=== PATIENT | male | born 1955 | race Caucasian/White ===

== ENCOUNTER → 2020-01-18 | Outpatient (CLI) | payer OTHER ==
[2020-01-18 10:52] LABS: BUN/Creatinine Ratio 17.9; Calcium 8.5 mg/dL (8.5-10.1); Potassium 3.5 mmol/L (3.5-5.1)
== END | disposition home or self-care (01) ==
LOC: LAB 10:11
PROVIDERS: ATTEND Urology
DX: Z01.812 Encounter for preprocedural laboratory examination (principal); N28.89 Other specified disorders of kidney and ureter
CPT/HCPCS: 36415; 80048

== ENCOUNTER → 2020-03-09 | Day surgery (SDC) | payer OTHER ==
[2020-03-02 15:24] LABS: INR 0.97 (0.9-1.15); Partial Thromboplastin Time 23.4 sec (23.0-31.2)
[2020-03-02 15:30] LABS: Urine Bacteria NONE SEEN /hpf (None Seen); Urine Blood Negative /uL (Negative); Urine Mucus FEW (None Seen); Urine Specific Gravity 1.026 (1.001-1.035); Urine WBC 1 /hpf (0 - 3)
[2020-03-02 15:41] LABS: Albumin 3.8 g/dL (3.4-5.0); BUN/Creatinine Ratio 14.4; Calcium 9.1 mg/dL (8.5-10.1); Potassium 3.3 mmol/L (3.5-5.1)
[2020-03-02 15:43] LABS: Bilirubin, Total 0.9 mg/dL (0.2-1.0); Total Protein 7.1 g/dL (6.4-8.2)
[2020-03-02 16:51] LABS: Basophils # (auto) 0 10 ^3/uL (0-0.2); Basophils % (auto) 0.4 % (0.0-2.0); Eosinophils # (auto) 0.2 10 ^3/uL (0-0.8); Eosinophils % (auto) 2.4 % (0.0-7.0); Hematocrit 42.7 % (41.0-53.0); Hemoglobin 14.4 g/dL (13.5-17.5); Lymphocytes # (auto) 2.9 10 ^3/uL (0.4-5.4); Lymphocytes % (auto) 39.6 % (10.0-50.0); Mean Corpuscular Hemoglobin 28.7 pg (28.0-32.0); Mean Corpuscular Hgb Conc. 33.7 g/dL (32.0-36.0); Mean Corpuscular Volume 85.2 fL (80.0-100.0); Monocytes # (auto) 0.6 10 ^3/uL (0-1.3); Monocytes % (auto) 8.6 % (0.0-12.0); Neutrophils # (auto) 3.6 10 ^3/uL (1.6-8.6); Nucleated Red Blood Cells % 0.1 %; Platelet Count (auto) 292 10^3/uL (140-450); Red Blood Cells 5.01 10^6/uL (4.5-5.90); Red Cell Distribution Width 12.6 % (11.8-14.3); White Blood Cell 7.3 10^3/uL (4.4-10.8)
[~2020-03-09] VITALS: Ht 162.6 cm; Wt 86.2 kg
[~2020-03-09] MED LIST: ASPI-543 PO; CIPROFLOXACIN 400MG/200ML 200 ML IV ONE; HYDR25TA4 PO; MECL25TA18 PO; MIDAZOLAM HCL 1MG/1ML-2 ML VIAL ONE; fentaNYL CITRATE 100 MCG/2 ML VL ONE
[2020-03-09 11:45] VITALS: BP 118/77
== END | disposition home or self-care (01) ==
LOC: SUR 08:08
PROVIDERS: ATTEND Urology
DX: N20.0 Calculus of kidney (principal); I10 Essential (primary) hypertension; E66.01 Morbid (severe) obesity due to excess calories; Z88.0 Allergy status to penicillin; Z68.32 Body mass index [BMI] 32.0-32.9, adult; Z79.82 Long term (current) use of aspirin; Z79.899 Other long term (current) drug therapy; Z98.890 Other specified postprocedural states; Z20.828 Contact with and (suspected) exposure to other viral communicable diseases
CPT/HCPCS: 36415; 50590; 80053; 81001; 85025; 85610; 85730; J0744; J2250; J3010; U0003

== ENCOUNTER → 2020-03-20 | Outpatient (CLI) | payer OTHER ==
[~2020-03-20] MED LIST changes: -CIPROFLOXACIN 400MG/200ML 200 ML IV ONE; -MIDAZOLAM HCL 1MG/1ML-2 ML VIAL ONE; -fentaNYL CITRATE 100 MCG/2 ML VL ONE
== END | disposition home or self-care (01) ==
LOC: LAB 16:53
PROVIDERS: ATTEND Urology
DX: N20.0 Calculus of kidney (principal)
CPT/HCPCS: 82360

== ENCOUNTER 2024-08-25 07:21 | Inpatient (IN) | payer MEDICARE, OTHER ==
[~2024-08-25] VITALS: Ht 162.6 cm; Wt 74.0 kg
[~2024-08-25 07:21] MED LIST changes: +MECL-90 PO; -MECL25TA18 PO
--- NOTE | 2024-08-25 07:49 | ED.PDOC ---
History of Present Illness HPI Comments 69M presents to the ER w/ prior Hx of Mantle Cell Lymphoma Cancer and is currently taking Chemo which may be associated to the c/c of Constipation. Pt reports that he has been having light urgency for a week and woke up today w/ urgency and was unable to use the bathroom. Pt notes that he started to bleed as well. Denies chills, fever, N/V/D, SOB, CP or no other associated symptoms, modifiers, recent injuries or sick contacts at this time. Chief Complaint: Constipation Time Seen by MD: 07:40 Reviewed Notes: Nurses Notes, Medications, Allergies Allergies: Coded Allergies: Penicillins (Verified Allergy, Unknown, 03/02/20) Home Meds Reported Medications Meclizine Hcl (Meclizine Hcl) 25 Mg Tab, 25 MG PO DAILY for 30 Days, MG 03/02/20 Aspirin (Aspir-Low) 81 Mg Tab, 81 MG PO DAILY for 30 Days, MG 03/02/20 Hydrochlorothiazide (Hydrochlorothiazide) 25 Mg Tab, 25 MG PO DAILY for 30 Days, MG 03/02/20 Information Source: Patient, Spouse Mode of Arrival: Ambulatory Severity: Moderate Timing: Days Duration: Since onset, Days Prehospital treatment: None Past Medical History PAST MEDICAL HISTORY: Cancer (Mantle Cell Lymphoma) Past Medical History (Other): Currently going through Chemo Surgical History: Denies all surgeries Family History Family History: Reviewed,noncontributory to illness, Unknown Social History Smoker: Non-Smoker Alcohol: Denies ETOH Use Drugs: Denies Drug Use Lives In: Home Constitutional: denies: chills, diaphoresis, fatigue, fever, malaise, sweats, weakness, others EENTM: denies: blurred vision, double vision, ear bleeding, ear discharge, ear drainage, ear pain, ear ringing, eye pain, eye redness, hearing loss, mouth pain, mouth swelling, nasal discharge, nose bleeding, nose congestion, nose pain, photophobia, tearing, throat pain, throat swelling, voice changes, others Respiratory: denies: cough, hemoptysis, orthopnea, SOB at rest, shortness of breath, SOB with excertion, stridor, wheezing, others Cardiovascular: denies: chest pain, dizzy spells, diaphoresis, Dyspnea on exer tion, edema, irregular heart beat, left arm pain, lightheadedness, palpitations, PND, syncope, others Gastrointestinal: reports: constipated; denies: abdomen distended, abdominal pain, blood streaked bowels, diarrhea, dysphagia, difficulty swallowing, hematemesis, melena, nausea, poor appetite, poor fluid intake, rectal bleeding, rectal pain, vomiting, others Genitourinary: denies: burning, dysuria, flank pain, frequency, hematuria, incontinence, penile discharge, penile sore, pain, testicle pain, testicle swelling, urgency, others Neurological: denies: dizziness, fainting, headache, left sided numbness, left sided weakness, numbness, paresthesia, pre-existing deficit, right sided numbness, right sided weakness, seizure, speech problems, tingling, tremors, weakness, others Musculoskeletal: denies: back pain, gout, joint pain, joint swelling, muscle pain, muscle stiffness, neck pain, others Integumetry: denies: bruises, change in color, change in hair/nails, dryness, laceration, lesions, lumps, rash, wounds, others Allergic/Immunocompromised: denies: Difficulty Healing, Frequent Infections, Hives, Itching, others Hematologic/Lymphatic: denies: anemia, blood clots, easy bleeding, easy bruising, swollen glands, others Endocrine: denies: excessive hunger, excessive sweating, excessive thirst, excessive urination, flushing, intolerance to cold, intolerance to heat, unexplained weight gain, unexplained weight loss, others Psychiatric: denies: anxiety, bipolar disorder, depression, hopeless, panic disorder, schizophrenia, sleepless, suicidal, others All Other Systems: Reviewed and Negative Physical Exam General Appearance: Moderate Distress, Normal HEENT: Normal ENT Inspection, Pharynx Normal, TMs Normal Neck: Full Range of Motion, Non-Tender, Normal, Normal Inspection Respiratory: Chest Non-Tender, Lungs Clear, No Accessory Muscle Use, No Respiratory Distress, Normal Breath Sounds Cardiovascular: No Edema, No JVD, No Murmur, No Gallop, Normal Peripheral Pulses, Regular Rate/Rhythm Breast Exam: Deferred Gastrointestinal: Diffuse, No Organomegaly, No Pulsatile Mass, Normal Bowel Sounds, Soft Genitalia: Deferred Pelvic: Deferred Rectal: Deferred Extremities: No calf tenderness, Normal capillary refill, Normal inspection, Normal range of motion, Non-tender, No pedal edema Musculoskeletal : Apperance: Normal Neurologic: Alert, terry cloth cutter hand II-XII nml as Tested, No Motor Deficits, Normal Affect, Normal Mood, No Sensory Deficits Cerebellar Function: Normal Reflexes: Normal Skin: Dry, Normal Color, Warm Peripheral Pulses: 3+ Radial (R), 3+ Radial (L) Lymphatic: No Adenopathy Was a procedure done? Was a procedure done?: No Differential Dx Considerations may include: Anemia Electrolyte imbalance X-Ray, Labs, Meds, VS Vital Signs Date Time Temp Pulse Resp B/P (MAP) Pulse Ox O2 Delivery O2 Flow Rate FiO2 08/25/24 09:09 98.4 98 17 116/65 (82) 97 98.4 08/25/24 09:09 98 17 97 Room Air 08/25/24 07:34 98.2 98 20 116/71 (86) 97 98.2 Lab Test 08/25/24 08:10 08/25/24 06:00 Range/Units White Blood Count 6.5 4.4-10.8 10^3/uL Red Blood Count 2.30 L 4.5-5.90 10^6/uL Hemoglobin 7.2 L 13.5-17.5 g/dL Hematocrit 21.4 L 41.0-53.0 % Mean Corpuscular Volume 93.1 80.0-100.0 fL Mean Corpuscular Hemoglobin 31.3 28.0-32.0 pg Mean Corpuscular Hemoglobin Concent 33.7 32.0-36.0 g/dL Red Cell Distribution Width 17.0 H 11.8-14.3 % Platelet Count 63 L 140-450 10^3/uL Mean Platelet Volume 7.5 6.9-10.8 fL Neutrophils (%) (Auto) 37.0-80.0 % Lymphocytes (%) (Auto) 10.0-50.0 % Monocytes (%) (Auto) 0.0-12.0 % Basophils (%) (Auto) 0.0-2.0 % Neutrophils # (Auto) 1.6-8.6 10 ^3/uL Lymphocytes # (Auto) 0.4-5.4 10 ^3/uL Monocytes # (Auto) 0-1.3 10 ^3/uL Differential Total Cells Counted Pending Neutrophils % (Manual) Pending Band Neutrophils % (Manual) Pending Lymphocytes % (Manual) Pending Monocytes % (Manual) Pending Eosinophils % (Manual) Pending Basophils % (Manual) Pending Metamyelocytes % (manual) Pending Myelocytes % (Manual) Pending Promyelocytes % (Manual) Pending Blast Cells % (Manual) Pending Reactive Lymphocytes Pending Platelet Estimate Pending Sodium Level 134 L 136-145 mmol/L Potassium Level 4.0 3.5-5.1 mmol/L Chloride Level 102 98-107 mmol/L Carbon Dioxide Level 21 20-31 mmol/L Anion Gap 11 5-15 Blood Urea Nitrogen 36 H 9-23 mg/dL Creatinine 1.06 0.700-1.30 mg/dL Glomerular Filtration Rate Calc 76 >90 mL/min BUN/Creatinine Ratio 34.0 H 10.0-20.0 Serum Glucose 94 74-106 mg/dL Calcium Level 9.0 8.7-10.4 mg/dL Urine Color Yellow Yellow Urine Clarity Clear Clear Urine pH 6.0 5.0-9.0 Urine Specific [place] 1.019 1.001-1.035 Urine Protein Trace H Negative Urine Ketones Negative Negative Urine Blood Trace H Negative /uL Urine Nitrite Negative Negative Urine Bilirubin Negative Negative Urine Urobilinogen Normal Negative mg/dL Urine Leukocyte Esterase Negative Negative /uL Urine RBC <1 0 - 3 /hpf Urine Microscopic WBC 1 0-3 /HPF Urine Squamous Epithelial Cells None seen <5 /hpf Urine Bacteria None seen None Seen /hpf Urine Glucose Normal Normal mg/dL Current Medications Medications (Trade) Dose Ordered Sig/Srini Route Start Time Stop Time Status Last Admin Sodium Chloride 1,000 ml @ 1,000 mls/hr Q1H ONCE IV 08/25/24 07:45 08/25/24 08:44 DC 08/25/24 09:07 Sodium Biphosphate/ Sodium Phosphate 135 ml ONCE ONCE AK 08/25/24 07:45 08/25/24 07:46 DC 08/25/24 09:16 EXAM: XY CHEST PORTABLE Indication: sob Technique: Single frontal view of the chest was obtained Comparison: None FINDINGS: Lines and Tubes: None Lungs: No focal consolidation. Pleura: No effusion. No pneumothorax. Cardiomediastinal contours: Unremarkable Bones: No acute osseous abnormality. IMPRESSION: No acute cardiopulmonary disease. Exam: CT CT AB PEL WO CON-NO ORAL OR IV History: colitisvsconstipation Comparison Study: None Technique: Multidetector spiral CT of the abdomen was performed from lung bases to pubic symphysis. Imaging was performed without IV contrast. Axial, coronal and sagittal multiplanar reformats were obtained from the axial data set by the technologist. Radiation Dose : 1. Abdomen/Pelvis: CTDIvol 7.88 mGy, DLP 427.09 mGy*cm. Findings: Evaluation of solid organs is limited due to lack of intravenous contrast use. Lung Bases: Small bilateral pleural effusions. Liver: The liver is normal in size. No focal lesions. Gallbladder and Biliary Tree: Unremarkable Spleen: Splenomegaly. Pancreas: The pancreas is grossly normal in appearance. Adrenal Glands: Unremarkable Kidneys: Kidneys are grossly normal without calculi or hydronephrosis. Bladder: Grossly unremarkable for degree of distention. Bowel: The stomach is grossly normal in appearance. Moderate volume colonic stool. The appendix is not visualized; however, no secondary findings of acute appendicitis identified. Ascites: Absent Lymphadenopathy: Diffuse retroperitoneal adenopathy extending into the left hemipelvis and left groin. For example, Left inguinal lymph node measures 4.8 cm. Left external iliac adenopathy measures 5.9 cm. Left para-aortic lymph node measures 4.5 cm. Abdominal Wall and Mesentery: Unremarkable. Vasculature: The visualized abdominal aorta is normal in size and caliber. Evaluation of abdominal and pelvic vessels is limited due to lack of intravenous contrast. Pelvic Organs: Unremarkable Musculoskeletal: No aggressive focal bony lesions, acute fractures or dislocation. IMPRESSION: Diffuse retroperitoneal, left pelvic and left inguinal adenopathy. Splenomegaly. Radiation optimization: All CT scans at this facility use at least one of these dose optimization techniques: automated exposure control mA and/or kV adjustment per patient size (includes targeted exams where dose is matched to clinical indication) or iterative reconstruction. Patient alert. Complaining of abdominal pain. History of mental lymphoma. Vitals stable. He is on chemotherapy. Continues to have abdominal pain. Was given Fleet. Reviewed his history pain Explained to the patient. Continue monitoring. CT scan of the abdomen reviewed does not show any acute changes lymphadenopathy splenomegaly. Chest x-ray reviewed does not show any acute changes. EKG reviewed does not show any acute changes. Time of 1ST Reevaluation: 08:10 Reevaluation 1ST: Unchanged Patient Education/Counseling: Diagnosis, Treatment, Prognosis Family Education/Counseling: Diagnosis, Treatment, Prognosis Departure 1 Departure Time of Disposition: 07:56 Impression: Primary Impression: Acute abdominal pain Disposition: ADMITTED INPATIENT Admit to: Med Surg Condition: Guarded Critical Care Note Critical Care Time?: No Stability Stability form required: No Heart Score Heart Score: Heart Score Response (Comments) Value History Slightly Suspicious 0 EKG Normal 0 Age >65 2 Risk Factors 1 or 2 risk factors 1 Troponin Normal limit 0 Total 3 I personally scribed for BRYANT CARTER MD ([email or web address]) on 08/25/24 at 07:49. Electronically submitted by Anuj Núñez ([email or web address]). I personally scribed for BRYANT CARTER MD ([email or web address]) on 08/25/24 at 11:28. Electronically submitted by Anuj Núñez ([email or web address]). BRYANT CARTER MD Aug 25, 2024 07:49
--- NOTE | 2024-08-25 08:14 | DVH ---
EXAM: XY CHEST PORTABLE Indication: sob Technique: Single frontal view of the chest was obtained Comparison: None FINDINGS: Lines and Tubes: None Lungs: No focal consolidation. Pleura: No effusion. No pneumothorax. Cardiomediastinal contours: Unremarkable Bones: No acute osseous abnormality. IMPRESSION: No acute cardiopulmonary disease.
[2024-08-25 08:27] LABS: Hemoglobin 7.2 g/dL (13.5-17.5)
--- NOTE | 2024-08-25 08:27 | DVH ---
Exam: CT CT AB PEL WO CON-NO ORAL OR IV History: colitisvsconstipation Comparison Study: None Technique: Multidetector spiral CT of the abdomen was performed from lung bases to pubic symphysis. I maging was performed without IV contrast. Axial, coronal and sagittal multiplanar reformats were obta ined from the axial data set by the technologist. Radiation Dose : 1. Abdomen/Pelvis: CTDIvol 7.88 mGy, DLP 427.09 mGy*cm. Findings: Evaluation of solid organs is limited due to lack of intravenous contrast use. Lung Bases: Small bilateral pleural effusions. Liver: The liver is normal in size. No focal lesions. Gallbladder and Biliary Tree: Unremarkable Spleen: Splenomegaly. Pancreas: The pancreas is grossly normal in appearance. Adrenal Glands: Unremarkable Kidneys: Kidneys are grossly normal without calculi or hydronephrosis. Bladder: Grossly unremarkable for degree of distention. Bowel: The stomach is grossly normal in appearance. Moderate volume colonic stool. The appendix is no t visualized; however, no secondary findings of acute appendicitis identified. Ascites: Absent Lymphadenopathy: Diffuse retroperitoneal adenopathy extending into the left hemipelvis and left groin . For example, Left inguinal lymph node measures 4.8 cm. Left external iliac adenopathy measures 5.9 cm. Left para-aortic lymph node measures 4.5 cm. Abdominal Wall and Mesentery: Unremarkable. Vasculature: The visualized abdominal aorta is normal in size and caliber. Evaluation of abdominal a nd pelvic vessels is limited due to lack of intravenous contrast. Pelvic Organs: Unremarkable Musculoskeletal: No aggressive focal bony lesions, acute fractures or dislocation. IMPRESSION: Diffuse retroperitoneal, left pelvic and left inguinal adenopathy. Splenomegaly. Radiation optimization: All CT scans at this facility use at least one of these dose optimization lexx hniques: automated exposure control mA and/or kV adjustment per patient size (includes targeted exam s where dose is matched to clinical indication) or iterative reconstruction.
[2024-08-25 08:30] LABS: Hematocrit 21.4 % (41.0-53.0); Mean Corpuscular Hemoglobin 31.3 pg (28.0-32.0); Mean Corpuscular Hgb Conc. 33.7 g/dL (32.0-36.0); Mean Corpuscular Volume 93.1 fL (80.0-100.0); Platelet Count (auto) 63 10^3/uL (140-450); White Blood Cell 6.5 10^3/uL (4.4-10.8)
[2024-08-25 08:31] LABS: Basophils % (manual) 0 (0.0-2.0); Blast Cells 0; Metamyelocytes % 0; Monocytes % (manual) 0 (0-12); Myelocytes % 0; Promyelocytes % 0; Reactive Lymphocytes 0
[2024-08-25 08:33] LABS: Chloride 102 mmol/L (98-107)
[2024-08-25 08:34] LABS: Anion Gap 11 (5-15); Carbon Dioxide 21 mmol/L (20-31)
[2024-08-25 08:36] LABS: Sodium 134 mmol/L (136-145)
[2024-08-25 08:39] LABS: Glucose 94 mg/dL (74-106)
[2024-08-25 08:40] LABS: Blood Urea Nitrogen 36 mg/dL (9-23)
[2024-08-25] MEDS: SODIUM CHLORIDE 0.9% 1,000 ML IV ONE (09:07)
[2024-08-25 09:09] VITALS: BP 116/65; PULSE 98; RESP 17; TEMP 98.4; O2SAT 97
[2024-08-25 09:13] LABS: Urine Bacteria None Seen /hpf (None Seen)
[2024-08-25] MEDS: FLEET ENEMA(ADULT) 135 ML PR ONE (09:16)
[2024-08-25 09:28] LABS: Urine Blood TRACE /uL (Negative); Urine Clarity Clear (Clear); Urine Color Yellow (Yellow); Urine Protein, UAD TRACE (Negative); Urine Specific Gravity 1.019 (1.001-1.035); Urine Squamous Epithelial Cell None Seen /hpf (<5); Urine Urobilinogen Normal (Negative); Urine WBC 1 /HPF (0-3)
[2024-08-25] MEDS ORDERED: ONDANSETRON HCL 4 MG/2 ML VIAL IV PRN (12:00)
[2024-08-25] MEDS ORDERED: ACETAMINOPHEN 325 MG TAB PO PRN (12:00)
[2024-08-25 12:02] LABS: Band Neutrophils % (manual) 13; Eosinophils % (manual) 1 (0-7); Lymphocytes % (manual) 13 (10.0-50.0); Platelet Estimate Decreased
[2024-08-25] MEDS ORDERED: PANT40T PO (12:05)
[2024-08-25] MEDS ORDERED: LEVO125T7 PO (12:05)
[2024-08-25] MEDS ORDERED: ALLO300T2 PO (12:05)
[2024-08-25] MEDS ORDERED: ONDA-188 (12:05)
[2024-08-25] MEDS ORDERED: PROC10TA6 PO (12:05)
--- NOTE | 2024-08-25 12:15 | DVHHP2 ---
History of Present Illness Reason for Visit: Constipation History of Present Illness Arturo Atkinson is a 69-year-old male with past medical history of hypertension, mantle cell lymphoma cancer, and lithotripsy who presents to the ED for constipation, urgency, hematuria, and blood in his stool x1 week. Jenelle at chair side reports that since his chemo 1st phase and has had these side effects. She reports that he has had a poor appetite for the last several days. His next chemo appointment is on the of this month. He states that he goes to [facility]. Patient also reports that his platelets and his hemoglobin is usually low. also reports that there was blood in his stool. Patient reports if it was a very small amount and he was straining of the time. Patient also reports that he was sick with a cold recently. Patient denies any chest pain, shortness of breath, fever, chills, recent trauma or injury, recent travels, recent ingestion of spoiled food, abdominal pain, nausea, vomiting, diarrhea, lightheadedness, weakness, or dizziness. Cardiovascular: HTN Past Medical History Mantle cell lymphoma cancer Past Surgical History: Other (Lithotripsy) Family History: None Smoke: No ALCOHOL: none Drugs: None Lives: with Family Domestic Violence: Neg Review of Systems Gastrointestinal: Constipation Genitourinary: Hematuria, Other (Urgency) Allergies: Coded Allergies: Penicillins (Verified Allergy, Unknown, 03/02/20) Medications Current Medications Medications Dose Ordered Sig/Srini Route Start Time Stop Time Status Last Admin Dose Admin Ceftriaxone Sodium 50 ml @ 100 mls/hr DAILY@09 IV 08/25/24 12:00 UNV Exam Vital Signs Vital Signs Date Time Temp Pulse Resp B/P (MAP) Pulse Ox O2 Delivery O2 Flow Rate FiO2 08/25/24 09:09 98.4 98 17 116/65 (82) 97 98.4 08/25/24 09:09 Room Air General Appearance: Alert, Oriented X3, Cooperative, No acute distress HEENT: Atraumatic, PERRLA, EOMI, Mucous membr. moist/pink Respiratory: Clear to auscultation, Normal air movement Cardiovascular: Regular rate, Normal S1, Normal S2, No murmurs Abdominal: Soft Extremities: No cyanosis, No edema, Normal pulses Skin: No significant lesion Neuro: Normal gait, Normal speech, Strength at 5/5 X4 ext, Normal tone, Sensation intact Psych/Mental Status: Mental status NL, Mood NL Labs/Xrays Labs Test 08/25/24 08:10 08/25/24 06:00 Range/Units White Blood Count 6.5 4.4-10.8 10^3/uL Red Blood Count 2.30 L 4.5-5.90 10^6/uL Hemoglobin 7.2 L 13.5-17.5 g/dL Hematocrit 21.4 L 41.0-53.0 % Mean Corpuscular Volume 93.1 80.0-100.0 fL Mean Corpuscular Hemoglobin 31.3 28.0-32.0 pg Mean Corpuscular Hemoglobin Concent 33.7 32.0-36.0 g/dL Red Cell Distribution Width 17.0 H 11.8-14.3 % Platelet Count 63 L 140-450 10^3/uL Mean Platelet Volume 7.5 6.9-10.8 fL Neutrophils (%) (Auto) 37.0-80.0 % Lymphocytes (%) (Auto) 10.0-50.0 % Monocytes (%) (Auto) 0.0-12.0 % Basophils (%) (Auto) 0.0-2.0 % Neutrophils # (Auto) 1.6-8.6 10 ^3/uL Lymphocytes # (Auto) 0.4-5.4 10 ^3/uL Monocytes # (Auto) 0-1.3 10 ^3/uL Differential Total Cells Counted 100.0 100 Neutrophils % (Manual) 73 37.0-80.0 Band Neutrophils % (Manual) 13 Lymphocytes % (Manual) 13 10.0-50.0 Monocytes % (Manual) 0 0-12 Eosinophils % (Manual) 1 0-7 Basophils % (Manual) 0 0.0-2.0 Metamyelocytes % (manual) 0 Myelocytes % (Manual) 0 Promyelocytes % (Manual) 0 Blast Cells % (Manual) 0 Reactive Lymphocytes 0 Platelet Estimate Decreased Sodium Level 134 L 136-145 mmol/L Potassium Level 4.0 3.5-5.1 mmol/L Chloride Level 102 98-107 mmol/L Carbon Dioxide Level 21 20-31 mmol/L Anion Gap 11 5-15 Blood Urea Nitrogen 36 H 9-23 mg/dL Creatinine 1.06 0.700-1.30 mg/dL Glomerular Filtration Rate Calc 76 >90 mL/min BUN/Creatinine Ratio 34.0 H 10.0-20.0 Serum Glucose 94 74-106 mg/dL Calcium Level 9.0 8.7-10.4 mg/dL Urine Color Yellow Yellow Urine Clarity Clear Clear Urine pH 6.0 5.0-9.0 Urine Specific [place] 1.019 1.001-1.035 Urine Protein Trace H Negative Urine Ketones Negative Negative Urine Blood Trace H Negative /uL Urine Nitrite Negative Negative Urine Bilirubin Negative Negative Urine Urobilinogen Normal Negative mg/dL Urine Leukocyte Esterase Negative Negative /uL Urine RBC <1 0 - 3 /hpf Urine Microscopic WBC 1 0-3 /HPF Urine Squamous Epithelial Cells None seen <5 /hpf Urine Bacteria None seen None Seen /hpf Urine Glucose Normal Normal mg/dL EXAM: XY CHEST PORTABLE Indication: sob Technique: Single frontal view of the chest was obtained Comparison: None FINDINGS: Lines and Tubes: None Lungs: No focal consolidation. Pleura: No effusion. No pneumothorax. Cardiomediastinal contours: Unremarkable Bones: No acute osseous abnormality. IMPRESSION: No acute cardiopulmonary disease. Exam: CT CT AB PEL WO CON-NO ORAL OR IV History: colitisvsconstipation Comparison Study: None Technique: Multidetector spiral CT of the abdomen was performed from lung bases to pubic symphysis. Imaging was performed without IV contrast. Axial, coronal and sagittal multiplanar reformats were obtained from the axial data set by the technologist. Radiation Dose : 1. Abdomen/Pelvis: CTDIvol 7.88 mGy, DLP 427.09 mGy*cm. Findings: Evaluation of solid organs is limited due to lack of intravenous contrast use. Lung Bases: Small bilateral pleural effusions. Liver: The liver is normal in size. No focal lesions. Gallbladder and Biliary Tree: Unremarkable Spleen: Splenomegaly. Pancreas: The pancreas is grossly normal in appearance. Adrenal Glands: Unremarkable Kidneys: Kidneys are grossly normal without calculi or hydronephrosis. Bladder: Grossly unremarkable for degree of distention. Bowel: The stomach is grossly normal in appearance. Moderate volume colonic stool. The appendix is not visualized; however, no secondary findings of acute appendicitis identified. Ascites: Absent Lymphadenopathy: Diffuse retroperitoneal adenopathy extending into the left hemipelvis and left groin. For example, Left inguinal lymph node measures 4.8 cm. Left external iliac adenopathy measures 5.9 cm. Left para-aortic lymph node measures 4.5 cm. Abdominal Wall and Mesentery: Unremarkable. Vasculature: The visualized abdominal aorta is normal in size and caliber. Evaluation of abdominal and pelvic vessels is limited due to lack of intravenous contrast. Pelvic Organs: Unremarkable Musculoskeletal: No aggressive focal bony lesions, acute fractures or dislocation. IMPRESSION: Diffuse retroperitoneal, left pelvic and left inguinal adenopathy. Splenomegaly. Assessment/Plan Assessment/Plan Assessment Acute constipation Hematuria Severe anemia Thrombocytopenia Hyponatremia Splenomegaly Left inguinal adenopathy History of hypertension History of mantle cell lymphoma cancer on chemo Plan Admit to [facility] Urine culture UA Sodium Vasc given ED NS 1 L given ED EKG Manual differential Fleet enema ordered in ED CT abdomen and pelvis noted Chest x-ray Type and screen Trend H&H IV antibiotics-ceftriaxone DVT prophylaxis-SCDs Iron panel Stool occult Dietary consult PUD prophylaxis-Protonix, continue home medication Home medications reconciled Discussed plan of care with patient, patient's , and nurse Rounding team to consider GI consult if H&H decreases Plan discussed with: Patient, Spouse My Orders Orders - ERIC AMAYA [employer] Procedure Category Date Status Time Type And Screen BBK 08/25/24 Logged 11:49 Ceftriaxone 1gm/50ml PHA 08/25/24 Logged D5w (Rocephin) 12:00 Admit ADMIT 08/25/24 Transmitted 11:49 Allergies CINDI 08/25/24 Transmitted 11:49 Code Status CODE 08/25/24 Transmitted 11:49 Ondansetron Hcl PHA 08/25/24 Transmitted (Zofran) 12:00 Complete Blood Count LAB 08/26/24 Verified 04:00 Comprehensive LAB 08/26/24 Verified Metabolic Panel 04:00 Cardiac DIET 08/25/24 Transmitted Diet-2gna,Lofat,Lochol Lunch Acetaminophen Tablet PHA 08/25/24 Transmitted (Tylenol Tablet) 12:00 Sequential CINDI 08/25/24 Transmitted Compression Device Iron Panel LAB 08/25/24 Logged 11:49 * Dietary Consult CONS 08/25/24 Transmitted 11:49 Stool Occult Blood LAB 08/25/24 Logged 11:49 Meclizine Tablet PHA 08/26/24 Transmitted (Antivert Tablet) 10:00 Pantoprazole Tablet PHA 08/26/24 Verified (Protonix Tablet) 07:00 Prochlorperazine PHA 08/26/24 Verified Tablet (Compazine 10:00 (Nf) Allopurinol PHA 08/26/24 Verified 10:00 (Nf) Levothyroxine PHA 08/26/24 Verified Sodium 10:00 Date of Service: Aug 25, 2024 Billing Provider: ERIC AMAYA Common Visit Codes: [id number] INP/OBS CARE (HIGH) ERIC AMAYA Aug 25, 2024 12:15
[2024-08-25 12:24] LABS: % Iron Saturation 95.4 % (20-55)
[2024-08-25] MEDS: cefTRIAXone 1GM/50ML D5W 50 ML IV SCH (13:43)
[2024-08-26] MEDS ORDERED: PANTOPRAZOLE 40 MG TAB PO SCH (07:00)
[2024-08-26] MEDS ORDERED: LEVOTHYROXINE SODIUM 50 MCG TAB PO SCH (07:00)
[2024-08-26] MEDS ORDERED: MECLIZINE HCL 25 MG TAB PO PRN (10:00)
[2024-08-26] MEDS ORDERED: PROCHLORPERAZINE MALEATE 10 MG TAB PO PRN (10:00)
[2024-08-26] MEDS ORDERED: ALLOPURINOL 100 MG TAB PO SCH (10:00)
[2024-08-26] MEDS ORDERED: ACYC1TAB2 PO (13:11)
[2024-08-26] MEDS ORDERED: LEVO500T91 PO (13:13)
== END 2024-08-25 19:15 | disposition left against medical advice (07) | DRG 389 ==
LOC: ER 07:21 → OVERFLOW 11:49
DX: K56.41 Fecal impaction (principal); E87.1 Hypo-osmolality and hyponatremia; K92.1 Melena; R31.9 Hematuria, unspecified; D69.6 Thrombocytopenia, unspecified; I10 Essential (primary) hypertension; D64.9 Anemia, unspecified; R16.1 Splenomegaly, not elsewhere classified; R59.0 Localized enlarged lymph nodes; Z53.29 Procedure and treatment not carried out because of patient's decision for other reasons; Z85.72 Personal history of non-Hodgkin lymphomas; Z88.0 Allergy status to penicillin
CPT/HCPCS: 36415; 71045; 74176; 80048; 81001; 83540; 83550; 85007; 85027; 86850; 86900; 86901; 87086; 96365; G0378

== ENCOUNTER → 2024-08-27 | Outpatient (CLI) | payer MEDICARE, OTHER ==
[~2024-08-27] VITALS: Ht 162.6 cm; Wt 74.0 kg
[~2024-08-27] MED LIST changes: +ACYC1TAB2 PO; +ALLO300T2 PO; +HEPARIN SODIUM (PORCINE) 5000 UNITS/ML 1ML VIAL ONE; +LEVO125T7 PO; +LEVO500T91 PO; +LIDOCAINE 2%HCL (LOCAL ANESTH.) INJ 20ML MDV ONE; +LIDOCAINE W/ EPINEPHRINE 2% INJ 20ML VIAL ONE; +MIDAZOLAM HCL 2MG/2ML 2ml VIAL (1mg/ml) ONE; +ONDA-188; +PANT40T PO; +PROC10TA6 PO; +ceFAZolin 1GM VL ONE; +cefTRIAXone 1GM/50ML D5W 0 ML IV ONE; +fentaNYL CITRATE 100 MCG/2 ML VL ONE
[2024-08-27 10:56] LABS: INR 1.14 (0.9-1.15); Partial Thromboplastin Time 24.3 SEC (24.5-34.5); Prothrombin Time 11.9 sec (9.3-11.8)
[2024-08-27 15:50] VITALS: BP 89/58; PULSE 88; RESP 23; O2SAT 97
[2024-08-27 16:04] VITALS: BP 87/56; PULSE 72; RESP 16; O2SAT 96
--- NOTE | 2024-08-27 16:18 | DVH ---
PROCEDURE: PORT PLACEMENT USING FLUOROSCOPY AND ULTRASOUND HISTORY: 69 Male with cancer requiring central venous access for chemotherapy . DOCUMENTATION: Informed consent was obtained and a procedural time out was performed. SEDATION: Moderate sedation was utilized during the procedure. The patient received benzodiazepines a nd opioids, the dosing of which was documented in the patient s permanent medical record. Pre-sedatio n history and evaluation revealed no contraindications to sedation. The patient s level of consciousn ess and physiologic status was monitored continuously by the physician and nursing staff throughout t he procedure. Total intra-service moderate sedation time was 30 minutes. Moderate sedation was admini stered by interventional radiology nursing staff under the direct supervision of Dr. Corado. Adequate analgesia and anxiolysis was obtained using intermittent, titrated dosages of medications with const ant monitoring of patient`s vital signs and telemetry. Total face to face sedation time: 30 minutes. FLUORO: 1 minutes, 6 mGy, TECHNIQUE: The skin over the RIGHT internal jugular vein and chest was sterilely prepped, draped and anesthetized with 1% lidocaine with epinephrine. The vein was accessed with a 21 gauge needle under u ltrasound guidance with an image archived in the PACS. The access was upsized and a guidewire was the n passed into the central veins under fluoroscopy. A short transverse incision was made over the ches t wall and the port pocket created using blunt and sharp technique after anesthetizing with 1% lidoca ine with epinephrine. The single-lumen power port hub was inserted into the pocket. The port catheter was then tunneled to the venous entry site, cut to the appropriate length, and inserted through a pe el away sheath. A final radiograph was obtained and the port was flushed with heparin. The pocket was then closed using 3-0 Vicryl and Dermabond. Sterile dressings were applied. Procedural physician complied with all CLIP criteria, including preprocedural hand hygiene and use of maximum sterile barriers including hat, gown, sterile gloves, mask, and head to toe drape. The neck and chest were prepped with chlorhexidine solution and draped in the usual sterile fashion. The prep solution was allowed to dry prior to puncture. FINDINGS: Ultrasound demonstrates a patent RIGHT internal jugular vein. The tip of the port catheter terminates near the cavoatrial junction. No complications are identified. IMPRESSION: SUCCESSFUL SINGLE LUMEN POWER PORT PLACEMENT. THE PORT IS READY FOR IMMEDIATE USE.
[2024-08-27 16:20] VITALS: BP 98/56; PULSE 76; RESP 22; O2SAT 98
[2024-08-27 16:34] VITALS: BP 95/57; PULSE 80; RESP 22; O2SAT 97
[2024-08-27 16:55] VITALS: BP 93/50; PULSE 85; RESP 24; O2SAT 98
== END | disposition home or self-care (01) ==
LOC: XYW 06:50
PROVIDERS: ATTEND Radiology Diagnostic Radiology
DX: C83.18 Mantle cell lymphoma, lymph nodes of multiple sites (principal); I10 Essential (primary) hypertension; J90 Pleural effusion, not elsewhere classified; E78.00 Pure hypercholesterolemia, unspecified; E03.9 Hypothyroidism, unspecified; Z86.19 Personal history of other infectious and parasitic diseases; Z88.0 Allergy status to penicillin
CPT/HCPCS: 36415; 36561; 76937; 77001; 85610; 85730; C1769; C1788; C1894; J0690; J1644; J2250; J3010; J7030; 99152; 99153